=== PATIENT | female | born 1965 | race African-American/Black ===

== ENCOUNTER → 2016-10-19 | Outpatient (CLI) | payer OTHER ==
[~2016-10-19] VITALS: Ht 165.1 cm; Wt 107.5 kg
[~2016-10-19] MED LIST: /AUGM875TA; /CELE20CA; /CIPR75TA; /ONDA4TA; ACET65TA; AMOX875T; BARACLUDE; BIOT50004 PO; CALC500T49 PO; COLA100C2; DARV100T; ENTE1TAB PO; ESOM1CAP5 PO; FLAG500T; FOLI1TAB; LIDOCAINE 2% INJ 100 MG/5 ML SDV (FOR ANES.) As Ordered ONE; MULT1TAB10 PO; NS 1,000 ML IV ONE; PERC5TAB8; PROPOFOL 200 MG/20 ML VIAL As Ordered ONE; THERGRAN; VITA500T
--- NOTE | 2016-10-19 12:07 | ROOR ---
Patient Name: Aura Burton Procedure Date: 10/19/2016 11:53 AM Date of : 1965 Age: 51 Room: [facility] Gender: Female Note Status: Finalized Procedure: Upper GI endoscopy + Biopsies Indications: Iron deficiency anemia Providers: Garland Wright MD Referring MD: ROBBY BUSTAMANTE MD Requesting Provider: Medicines: Monitored Anesthesia Care Complications: No immediate complications. Procedure: Pre-Anesthesia Assessment: - The heart rate, respiratory rate, oxygen saturations, blood pressure, adequacy of pulmonary ventilation, and response to care were monitored throughout the procedure. The Endoscope was introduced through the mouth, and advanced to the second part of duodenum. The upper GI endoscopy was accomplished without difficulty. The patient tolerated the procedure well. Findings: The Z-line was regular and was found 35 cm from the incisors. A medium-sized hiatal hernia was present. Localized mild inflammation characterized by congestion (edema), erosions and erythema was found in the gastric antrum. Biopsies were taken with a cold forceps for Helicobacter pylori testing. The exam of the duodenum was otherwise normal. Biopsies for histology were taken with a cold forceps in the first portion of the duodenum for evaluation of celiac disease. The exam was otherwise without abnormality. Impression: - Z-line regular, 35 cm from the incisors. - Medium-sized hiatal hernia. - Chronic gastritis. Biopsied. - The examination was otherwise normal. - Biopsies were taken with a cold forceps for evaluation of celiac disease. - The examination was otherwise normal. Recommendation: - Patient has a contact number available for emergencies. The signs and symptoms of potential delayed complications were discussed with the patient. Return to normal activities tomorrow. Written discharge instructions were provided to the patient. - High fiber diet. - Discharge patient to home. - Continue present medications. - Await pathology results. - Telephone GI clinic for pathology results in 1 week. - Return to referring physician. - The findings and recommendations were discussed with the patient's family. Garland Wright MD Garland Wright MD 10/19/2016 12:06:48 PM This report has been signed electronically. Number of Addenda: 0 Note Initiated On: 10/19/2016 11:53 AM Estimated Blood Loss: Estimated blood loss: none.
--- NOTE | 2016-10-19 12:27 | ROOR ---
Patient Name: Aura Burton Procedure Date: 10/19/2016 11:54 AM Date of : 1965 Age: 51 Room: [facility] Gender: Female Note Status: Finalized Procedure: Colonoscopy to Anastomosis + Cold Snare Polypectomy + Hemoclips + Biopsies Indications: Iron deficiency anemia Providers: Garland Wright MD Referring MD: ROBBY BUSTAMANTE MD Requesting Provider: Medicines: Monitored Anesthesia Care Complications: No immediate complications. Procedure: Pre-Anesthesia Assessment: - The heart rate, respiratory rate, oxygen saturations, blood pressure, adequacy of pulmonary ventilation, and response to care were monitored throughout the procedure. The Colonoscope was introduced through the anus and advanced to the cecum, identified by appendiceal orifice and ileocecal valve. The colonoscopy was performed without difficulty. The patient tolerated the procedure well. The quality of the bowel preparation was good. Findings: The perianal and digital rectal examinations were normal. Non-bleeding internal hemorrhoids were found during retroflexion. The hemorrhoids were small and Grade I (internal hemorrhoids that do not prolapse). There was evidence of a prior end-to-end colo-colonic anastomosis at 20 cm proximal to the anus. This was patent and was characterized by healthy appearing mucosa. The anastomosis was traversed. A medium polyp was found at 20 cm proximal to the anus. The polyp was sessile. The polyp was removed with a cold snare. Resection and retrieval were complete. To prevent bleeding after the polypectomy, two hemostatic clips were successfully placed (MR conditional). There was no bleeding at the end of the procedure. Scattered small-mouthed diverticula were found in the sigmoid colon and descending colon. There was a small lipoma, at the anastomosis. Biopsies were obtained with cold forceps for histology at the anastomosis. There was evidence of a prior end-to-end ileo-colonic anastomosis at the hepatic flexure. This was patent and was characterized by healthy appearing mucosa. The exam was otherwise without abnormality. Impression: - Non-bleeding internal hemorrhoids. - Patent end-to-end colo-colonic anastomosis, characterized by healthy appearing mucosa. - One medium polyp at 20 cm proximal to the anus, removed with a cold snare. Resected and retrieved. Clips (MR conditional) were placed. - Diverticulosis in the sigmoid colon and in the descending colon. - Small lipoma at the colonic anastomosis. - Patent end-to-end ileo-colonic anastomosis, characterized by healthy appearing mucosa. - The examination was otherwise normal. - Biopsies were obtained at the anastomosis. - The examination was otherwise normal. Recommendation: - Discharge patient to home. - Continue present medications. - Await pathology results. - Telephone GI clinic for pathology results in 1 week. - Check Portal Online for Path Results.([email or web address]) - Return to referring physician. - The findings and recommendations were discussed with the patient's family. Garland Wright MD Garland Wright MD 10/19/2016 12:27:10 PM This report has been signed electronically. Number of Addenda: 0 Note Initiated On: 10/19/2016 11:54 AM Estimated Blood Loss: Estimated blood loss: none.
[2016-10-19 12:45] VITALS: BP 147/85
== END | disposition home or self-care (01) ==
LOC: M OPP 11:03
PROVIDERS: ATTEND Internal Medicine Gastroenterology
DX: D50.9 Iron deficiency anemia, unspecified (principal); D12.5 Benign neoplasm of sigmoid colon; K64.0 First degree hemorrhoids; Z98.0 Intestinal bypass and anastomosis status; K57.30 Diverticulosis of large intestine without perforation or abscess without bleeding; D17.5 Benign lipomatous neoplasm of intra-abdominal organs; K44.9 Diaphragmatic hernia without obstruction or gangrene; K29.50 Unspecified chronic gastritis without bleeding; R12 Heartburn; B18.1 Chronic viral hepatitis B without delta-agent; Z80.3 Family history of malignant neoplasm of breast; Z80.1 Family history of malignant neoplasm of trachea, bronchus and lung; Z87.891 Personal history of nicotine dependence; Z79.899 Other long term (current) drug therapy

== ENCOUNTER → 2017-01-07 | Outpatient (REF) ==
[~2017-01-07] MED LIST changes: -LIDOCAINE 2% INJ 100 MG/5 ML SDV (FOR ANES.) As Ordered ONE; -NS 1,000 ML IV ONE; -PROPOFOL 200 MG/20 ML VIAL As Ordered ONE
== END ==
LOC: M LAB 10:03
PROVIDERS: ATTEND Nurse Practitioner Adult Health
DX: Z02.1 Encounter for pre-employment examination (principal)

== ENCOUNTER → 2017-01-10 | Outpatient (REF) ==
--- NOTE | 2017-01-11 02:01 | REP ---
Clinical: Contract requirement . Comparison: None . Technique: PA and lateral. Findings: The mediastinum and cardiac silhouette are normal. The lung lozano are clear and without acute consolidation, effusion, or pneumothorax. The skeletal structures are intact and normal. Impression: 1. No acute cardiopulmonary process. Signed by Jaiden Mercer MD 01/11/2017 01:52 A
== END ==
LOC: M LAB 09:29
PROVIDERS: ATTEND Nurse Practitioner Adult Health
DX: Z02.1 Encounter for pre-employment examination (principal)

== ENCOUNTER → 2017-01-14 | Outpatient (CLI) | payer OTHER | LOC: M WHC 07:57 | PROVIDERS: ATTEND Family Medicine | DX: M79.605 Pain in left leg (principal) ==

== ENCOUNTER → 2017-01-25 | Outpatient (CLI) | payer OTHER ==
--- NOTE | 2017-01-25 13:41 | REP ---
TRIPLE PHASE BONE SCAN OF LOWER EXTREMITIES: Following the intravenous administration of 21.8 millicuries technetium 99m MDP, the patient's knees are imaged in the flow phase in the anterior and posterior projections. Immediate blood pool and 2-hour delayed images are performed of the lower extremities in the anterior, posterior, and both lateral projections, from just below the hips to just above the ankles. There is no abnormal blood flow. There is no significant abnormal blood pooling. The delayed images show arthritic uptake at the knees bilaterally. There is a small focus of increased uptake in the anterior tibial tubercle bilaterally in asymmetrical pattern, which is nonspecific. IMPRESSION: Arthritic uptake at the knees. Mild symmetrical increased uptake at the anterior tibial tubercle bilaterally is nonspecific and could represent stress related changes at tendinous insertion site. Signed by Anatoliy Fraga MD 01/25/2017 05:11 P
--- NOTE | 2017-01-25 14:05 | REP ---
WHOLE BODY BONE SCAN: Following the intravenous administration of 21.8 mCi technetium 99m MDP, patient's whole body is imaged in the anterior and posterior projections. Additional oblique images of the thoracic and pelvic regions are performed as well as lateral views of the calvarium and feet. There appears to be arthritic uptake at both knees. There is mild increased uptake in the anterior tibial tubercle bilaterally in a symmetrical pattern. This may be related to stress changes at tendinous insertion site. There is increased uptake in the posterior left calcaneus. I cannot exclude stress fracture or stress-related changes at the insertion of the Achilles tendon. No other abnormal uptake is seen in the axial or appendicular skeleton. Renal and bladder activity are seen IMPRESSION: There appears to be mild bilateral arthritic uptake at the knees. There is mild bilateral focus of increased uptake at the anterior tibial tubercles bilaterally, possibly representing stress-related changes at tendinous insertion site. There is increased uptake in the posterior aspect of the left calcaneus. This could be related to stress-related changes in the bone at the Achilles tendon insertion site. I cannot exclude a focal stress fracture at this location. Signed by Anatoliy Fraga MD 01/25/2017 05:11 P
== END ==
LOC: M RAD 08:09
PROVIDERS: ATTEND Specialist
DX: M17.0 Bilateral primary osteoarthritis of knee (principal)
CPT/HCPCS: 78306; 78315; A9503

== ENCOUNTER 2017-03-23 07:31 | Emergency (ER) | payer OTHER ==
[~2017-03-23] VITALS: Ht 165.1 cm; Wt 99.5 kg
[2017-03-23 09:25] VITALS: BP 147/89
--- NOTE | 2017-03-23 09:50 | REP ---
REASON: Pain and swelling. DEEP VENOUS ULTRASOUND RIGHT UPPER EXTREMITY: TECHNIQUE: Multiple ultrasonographic images of the deep venous structures of the right upper extremity were obtained to rule out deep venous thrombosis. FINDINGS: There is no abnormal echogenic material seen in any of the visualized deep venous structures of the right upper extremity. Coaptation where applicable is appropriate throughout. Augmentation shows an expected response throughout. IMPRESSION: Negative exam. Signed by Dylon Machuca DO 03/23/2017 10:22 A
== END 2017-03-23 09:27 | disposition home or self-care (01) ==
LOC: M ED 07:31
DX: M65.222 Calcific tendinitis, left upper arm (principal); G43.909 Migraine, unspecified, not intractable, without status migrainosus; B19.10 Unspecified viral hepatitis B without hepatic coma; Z79.899 Other long term (current) drug therapy

== ENCOUNTER 2018-10-29 17:58 | Emergency (ER) | payer OTHER ==
[~2018-10-29] VITALS: Ht 165.1 cm; Wt 108.2 kg
[~2018-10-29 17:58] MED LIST changes: -/CELE20CA; -/ONDA4TA; +CELE1CAP4; +ONDA-1
[2018-10-29] MEDS ORDERED: VITA500C24 PO (18:25)
[2018-10-29] MEDS ORDERED: IRON325T2 PO (18:25)
--- NOTE | 2018-10-29 19:45 | REP ---
Left wrist: Four views. History: Pain. Findings: Four views of the left wrist show soft tissue swelling dorsally over the carpus. On the lateral view there is a subtle cortical irregularity at the dorsal aspect of the triquetrum. A chip fracture of the triquetrum could have this appearance. No other fracture is seen. Impression: Suspect subtle chip fracture of the dorsal surface of the triquetrum. Otherwise negative. Electronically Signed by Liam Fischer MD 10/29/2018 07:36 P
[2018-10-29] MEDS ORDERED: IBUPROFEN 600 MG TAB PO ONE (20:00)
[2018-10-29] MEDS ORDERED: IBUP-1022 PO (20:09)
[2018-10-29 20:14] VITALS: BP 146/83
== END 2018-10-29 20:22 | disposition home or self-care (01) ==
LOC: M ED 17:58
DX: M65.9 Synovitis and tenosynovitis, unspecified (principal); Z79.899 Other long term (current) drug therapy

== ENCOUNTER 2018-12-12 02:51 | Emergency (ER) | payer OTHER ==
[~2018-12-12] VITALS: Ht 165.1 cm; Wt 105.0 kg
[~2018-12-12 02:51] MED LIST changes: +IBUP-1022 PO; +IRON325T2 PO; +VITA500C24 PO
[2018-12-12] MEDS ORDERED: NEXI20CA PO (02:58)
[2018-12-12 05:20] VITALS: BP 150/80
== END 2018-12-12 05:20 | disposition home or self-care (01) ==
LOC: M ED 02:51
DX: R07.0 Pain in throat (principal); T76.11XA Adult physical abuse, suspected, initial encounter; Y92.238 Other place in hospital as the place of occurrence of the external cause; Y99.0 Civilian activity done for income or pay; Z79.899 Other long term (current) drug therapy

== ENCOUNTER 2019-01-10 07:40 | Emergency (ER) | payer OTHER ==
[~2019-01-10] VITALS: Ht 165.1 cm; Wt 105.5 kg
[~2019-01-10 07:40] MED LIST changes: +NEXI20CA PO
[2019-01-10 09:15] LABS: BASO # 0.1 10^3/uL (0.0-0.2); BASO % 0.8 % (0.0-1.0); EOS # 0.1 10^3/uL (0.0-0.50); EOS % 1.1 % (0.0-3.0); HEMATOCRIT 35.5 % (36.0-47.0); HEMOGLOBIN 10.8 g/dl (12.0-15.5); LYMPH % 64.8 % (24.0-44.0); MEAN CORPUSCULAR HEMOGLOBIN 21.9 pg (27.0-33.0); MEAN CORPUSCULAR HGB CONC 30.4 g/dl (32.0-36.5); MEAN CORPUSCULAR VOLUME 71.9 fl (80.0-96.0); MONO # 0.5 10^3/uL (0.0-0.8); MONO % 8.6 % (0.0-5.0); NEUTROPHILS # 1.5 10^3/uL (1.8-7.7); NEUTROPHILS % 24.5 % (36.0-66.0); PLATELET COUNT, AUTOMATED 291 10^3/uL (150-450); RED BLOOD COUNT 4.94 10^6/uL (4.00-5.40); WHITE BLOOD COUNT 6.2 10^3/uL (4.0-10.0)
[2019-01-10 09:40] LABS: ERYTHROCYTE SEDIMENTATION RATE 13 mm/hr (0-30)
--- NOTE | 2019-01-10 09:51 | REP ---
Right elbow for views : There is no fracture or dislocation. Mineralization and joint spaces are normal. There are no calcifications or foreign bodies. There is an olecranon spur. Impression: Negative right elbow. There is an olecranon spur. Electronically Signed by Anatoliy Macedo MD 01/10/2019 09:42 A
[2019-01-10 10:15] LABS: ALBUMIN 3.4 GM/DL (3.2-5.2); ALT/SGPT 26 U/L (12-78); BILIRUBIN,TOTAL 0.4 MG/DL (0.2-1.0); BLOOD UREA NITROGEN 11 MG/DL (7-18); C REACTIVE PROTEIN QUANTITATIV 0.61 MG/DL (0.00-0.30); CALCIUM LEVEL 8.7 MG/DL (8.5-10.1); CARBON DIOXIDE LEVEL 29 MEQ/L (21-32); CHLORIDE LEVEL 108 MEQ/L (98-107); CHOLESTEROL LEVEL 131 MG/DL (< 200); CPK CREATINE PHOSPHOKINASE 211 U/L (26-192); CREATININE FOR GFR 0.98 MG/DL (0.55-1.30); GLOMERULAR FILTRATION RATE > 60.0 (>51); GLUCOSE, FASTING 84 MG/DL (70-100); LDH LACTATE DEHYDROGENASE 173 U/L (84-246); PHOSPHORUS LEVEL 2.5 MG/DL (2.5-4.9); POTASSIUM SERUM 3.1 MEQ/L (3.5-5.1); RHEUMATOID FACTOR QUANT < 10.0 IU/ML (<15.0); SODIUM LEVEL 142 MEQ/L (136-145); TOTAL PROTEIN 7.3 GM/DL (6.4-8.2); TRIGLYCERIDES LEVEL 130 MG/DL (<150)
[2019-01-10] MEDS ORDERED: POTA20TA6 PO (11:19)
[2019-01-10] MEDS ORDERED: NAPR-837 PO ×2 (11:19→11:36)
[2019-01-10 11:27] VITALS: BP 147/73
[2019-01-15 14:08] LABS: ANA (HEP2) Positive (.); ANTI DS-DNA AB <1:10 titer (.)
== END 2019-01-10 11:39 | disposition home or self-care (01) ==
LOC: M ED 07:40
DX: M25.521 Pain in right elbow (principal); E87.6 Hypokalemia; R74.8 Abnormal levels of other serum enzymes; D50.9 Iron deficiency anemia, unspecified; K21.9 Gastro-esophageal reflux disease without esophagitis; G43.909 Migraine, unspecified, not intractable, without status migrainosus; B19.10 Unspecified viral hepatitis B without hepatic coma; Z79.899 Other long term (current) drug therapy; Z88.0 Allergy status to penicillin; Z88.8 Allergy status to other drugs, medicaments and biological substances

== ENCOUNTER → 2019-08-25 | Outpatient (CLI) | payer OTHER ==
[~2019-08-25] MED LIST changes: +NAPR-837 PO; +POTA20TA6 PO
--- NOTE | 2019-08-26 08:58 | REP ---
Clinical: History of hepatitis B. Technique: Real time carrillo scale ultrasound examination using curved array transducer. Findings: Liver is relatively normal in contour, size, and echotexture. A 1.1 x 1.0 x 1.1 cm cyst in the medial left lobe is suggested. The pancreas is incompletely evaluated due to interposed bowel gas. The gallbladder is normal and without gallstones, wall thickening, or pericholecystic fluid. No biliary ductal dilatation is appreciated and the common bile duct measures 4.0 mm diameter. The right kidney is normal in reniform shape without hydronephrosis and measures 11.6 x 5.7 x 3.8 cm. No ascites in the visualized right upper quadrant. Impression: Suspected 1.1 cm hepatic cyst. Otherwise normal liver/right upper quadrant ultrasound. Electronically Signed by Jaiden Mercer MD 08/26/2019 08:49 A
== END ==
LOC: M RAD 08:12
PROVIDERS: ATTEND Internal Medicine Gastroenterology
DX: B16.9 Acute hepatitis B without delta-agent and without hepatic coma (principal); K76.89 Other specified diseases of liver

== ENCOUNTER 2021-06-19 06:21 | Emergency (ER) | payer OTHER ==
[~2021-06-19] VITALS: Ht 165.1 cm; Wt 98.2 kg
[~2021-06-19 06:21] MED LIST changes: -ENTE1TAB PO; +[UNRECOGNIZED DRUG - CODE] PO
[2021-06-19 07:03] LABS: BASO % 0.5 % (0.0-1.0); EOS # 0.1 10^3/uL (0.0-0.5); EOS % 1.5 % (0.0-3.0); HEMATOCRIT 38.1 % (36.0-47.0); HEMOGLOBIN 11.3 g/dl (12.0-15.5); LYMPH # 3.1 10^3/uL (1.5-5.0); LYMPH % 48.3 % (24.0-44.0); MEAN CORPUSCULAR HGB CONC 29.7 g/dl (32.0-36.5); MEAN CORPUSCULAR VOLUME 74.3 fl (80.0-96.0); MONO # 0.8 10^3/uL (0.0-0.8); MONO % 11.8 % (2.0-8.0); NEUTROPHILS # 2.4 10^3/uL (1.5-8.5); NEUTROPHILS % 37.7 % (36.0-66.0); PLATELET COUNT, AUTOMATED 284 10^3/uL (150-450); RED BLOOD COUNT 5.13 10^6/uL (4.00-5.40); WHITE BLOOD COUNT 6.5 10^3/uL (4.0-10.0)
[2021-06-19] MEDS ORDERED: MORPHINE 4 MG/ML 1ML VIAL/SYRINGE (J2270) IV ONE ×3 (07:15→11:15)
[2021-06-19] MEDS ORDERED: ONDANSETRON 4MG/2ML VIAL IV ONE (07:15)
[2021-06-19] MEDS ORDERED: ISOVUE-370 76% 100ML VIAL As Ordered ONE (07:30)
[2021-06-19 07:37] LABS: ALBUMIN 3.3 GM/DL (3.2-5.2); ALT/SGPT 20 U/L (12-78); BILIRUBIN,DIRECT < 0.1 MG/DL (0.0-0.2); BILIRUBIN,TOTAL 0.2 MG/DL (0.2-1.0); BLOOD UREA NITROGEN 11 MG/DL (7-18); CARBON DIOXIDE LEVEL 28 MEQ/L (21-32); CHLORIDE LEVEL 109 MEQ/L (98-107); CREATININE FOR GFR 0.97 MG/DL (0.55-1.30); GLOMERULAR FILTRATION RATE > 60.0 (>51); GLUCOSE, FASTING 99 MG/DL (70-100); LIPASE 95 U/L (73-393); POTASSIUM SERUM 3.9 MEQ/L (3.5-5.1); SODIUM LEVEL 143 MEQ/L (136-145); TOTAL PROTEIN 7.2 GM/DL (6.4-8.2)
--- NOTE | 2021-06-19 07:49 | REPVR ---
PROCEDURE INFORMATION: Exam: XR Chest Exam date and time: 06/19/2021 6:57 AM Age: 56 years old Clinical indication: Pain; Other: Unspecified; Additional info: Chest pain TECHNIQUE: Imaging protocol: XR of the chest. Views: 1 view. COMPARISON: CR Chest, 2 view PA, Lat 01/10/2017 10:05 AM FINDINGS: Lungs: Unremarkable. No consolidation. Pleural spaces: Unremarkable. No pleural effusion. No pneumothorax. Heart/Mediastinum: The cardiomediastinal silhouette is fairly stable in appearance, allowing for differences in technique. Bones/joints: Degenerative changes again involve the spine. IMPRESSION: No evidence for acute pulmonary disease. Electronically signed by: Herrera Herzog On 06/19/2021 07:49:35 AM
--- NOTE | 2021-06-19 08:03 | REPVR ---
PROCEDURE INFORMATION: Exam: CTA Chest With Contrast Exam date and time: 06/19/2021 7:45 AM Age: 56 years old Clinical indication: Pain; Other: Chest; Additional info: Chest pain TECHNIQUE: Imaging protocol: Computed tomographic angiography of the chest with contrast. 3D rendering (Not supervised by radiologist): MIP and/or 3D reconstructed images were created by the technologist. Radiation optimization: All CT scans at this facility use at least one of these dose optimization techniques: automated exposure control; mA and/or kV adjustment per patient size (includes targeted exams where dose is matched to clinical indication); or iterative reconstruction. Contrast material: ISOVUE 370; Contrast volume: 75 ml; Contrast route: INTRAVENOUS (IV); COMPARISON: CR PORTABLE CHEST X-RAY 06/19/2021 6:50 AM FINDINGS: Pulmonary arteries: No pulmonary embolus is identified. Aorta: The thoracic aorta is nonaneurysmal. Other arteries: Atherosclerotic vascular calcifications are noted. Thyroid: There is a 1.6 cm hypodense right thyroid nodule. Lungs: The lungs demonstrate mild patchy ground-glass opacities, which could reflect microatelectasis, edema or pneumonitis. There also mild linear areas of atelectasis and scarring in the left upper and lower lobes. No airspace consolidation. The central airways appear patent. Pleural spaces: Unremarkable. No pneumothorax. No pleural effusion. Heart: Unremarkable. No cardiomegaly. No pericardial effusion. Lymph nodes: Unremarkable. No enlarged lymph nodes. Liver: The partially included liver contains a small cyst. Bones/joints: Degenerative changes involve the spine and shoulders. Soft tissues: Unremarkable. IMPRESSION: 1. No pulmonary embolus identified. 2. Mild patchy ground-glass opacities about the lungs, could reflect microatelectasis, edema or pneumonitis. 3. 1.6 cm right thyroid nodule. Correlate with nonemergent ultrasound. COMMENTS: Consistent with the [employer]'s Incidental Findings Committee white paper (J Am Konrad Radiol 2015): In patients aged 35 years and older with an incidental thyroid nodule equal to or greater than 1.[address], MRI or extrathyroidal US, further evaluation with dedicated thyroid US is recommended for patients with normal life expectancy and without comorbidities. For smaller nodules without suspicious features, no further evaluation or follow up is recommended. Electronically signed by: Herrera Herzog On 06/19/2021 08:02:56 AM
[2021-06-19 08:33] LABS: RSV AMPLIFICATION NEGATIVE (NEGATIVE)
[2021-06-19] MEDS ORDERED: ASPIRIN 81 MG CHEW TABLET PO ONE (11:15)
[2021-06-19 13:15] VITALS: BP 121/72
--- NOTE | 2021-06-19 18:33 | ECGEPIP ---
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
--- NOTE | 2021-06-19 18:34 | ECGEPIP ---
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
--- NOTE | 2021-06-19 19:47 | ED PDOC ---
Post-Departure Follow-Up cta chest faxed to dr almaguer for Cortez Kern MD Jun 19, 2021 19:47
== END 2021-06-19 13:39 | disposition home or self-care (01) ==
LOC: M ED 06:21
DX: J18.9 Pneumonia, unspecified organism (principal); E04.1 Nontoxic single thyroid nodule; R00.1 Bradycardia, unspecified; K21.9 Gastro-esophageal reflux disease without esophagitis; Z88.0 Allergy status to penicillin; Z88.6 Allergy status to analgesic agent; Z88.8 Allergy status to other drugs, medicaments and biological substances; Z79.899 Other long term (current) drug therapy; F17.200 Nicotine dependence, unspecified, uncomplicated
CPT/HCPCS: 71045; 71275; 80047; 80048; 80076; 83690; 84439; 84443; 84484; 85025; 87631; 93005; 93041; 94760; 96374; 96375; 96376; 99285; J2270; J2405; Q9967

== ENCOUNTER → 2022-04-20 | Outpatient (CLI) | payer OTHER ==
[~2022-04-20] MED LIST changes: +POTA-151 PO; -POTA20TA6 PO
== END ==
LOC: M PLARAD 10:02
PROVIDERS: ATTEND Family Medicine
DX: M25.562 Pain in left knee (principal)

== ENCOUNTER 2022-05-21 10:41 | Emergency (ER) | payer OTHER ==
[~2022-05-21] VITALS: Ht 165.1 cm; Wt 95.5 kg
[2022-05-21] MEDS ORDERED: ONDANSETRON 4MG 2ML VIAL IV ONE (11:25)
[2022-05-21 11:58] LABS: BASO % 0.5 % (0.0-1.0); EOS % 0.6 % (0.0-3.0); HEMATOCRIT 36.8 % (36.0-47.0); HEMOGLOBIN 11.1 g/dl (12.0-15.5); MEAN CORPUSCULAR HEMOGLOBIN 22.1 pg (27.0-33.0); MEAN CORPUSCULAR HGB CONC 30.2 g/dl (32.0-36.5); MEAN CORPUSCULAR VOLUME 73.2 fl (80.0-96.0); MONO # 0.6 10^3/uL (0.0-0.8); MONO % 9.2 % (2.0-8.0); NEUTROPHILS % 29.5 % (36.0-66.0); PLATELET COUNT, AUTOMATED 288 10^3/uL (150-450); RED BLOOD COUNT 5.03 10^6/uL (4.00-5.40); WHITE BLOOD COUNT 6.6 10^3/uL (4.0-10.0)
[2022-05-21 12:09] LABS: INR 0.96
[2022-05-21 12:10] LABS: PARTIAL THROMBOPLASTIN TIME 29.2 SECONDS (24.8-34.2)
[2022-05-21 12:19] LABS: LIPASE 27 U/L (12-53)
[2022-05-21 12:20] LABS: CK-MB VALUE MASS < 1.0 NG/ML (<3.6)
[2022-05-21 12:22] LABS: BILIRUBIN,DIRECT 0.1 MG/DL (<0.4)
[2022-05-21 12:23] LABS: FREE T4 1.04 NG/DL (0.89-1.76)
[2022-05-21 12:24] LABS: ALBUMIN 3.7 G/DL (3.2-5.2); ALKALINE PHOSPHATASE 57 U/L (46-116); ALT/SGPT 16 U/L (7.0-40); AST/SGOT 20 U/L (<34); BILIRUBIN,TOTAL 0.3 MG/DL (0.3-1.2); BLOOD UREA NITROGEN 11 MG/DL (9-23); CALCIUM LEVEL 9.4 MG/DL (8.5-10.1); CARBON DIOXIDE LEVEL 29 MMOL/L (20-31); CHLORIDE LEVEL 106 MMOL/L (98-107); CPK CREATINE PHOSPHOKINASE 182 U/L (34-145); CREATININE FOR GFR 0.88 MG/DL (0.55-1.30); GLOMERULAR FILTRATION RATE > 60.0 (>51); GLUCOSE, FASTING 95 MG/DL (60-100); MB/CK RELATIVE INDEX 0.54 (< OR =4); POTASSIUM SERUM 3.2 MMOL/L (3.5-5.1); SODIUM LEVEL 144 MMOL/L (136-145); TOTAL PROTEIN 7.3 G/DL (5.7-8.2)
[2022-05-21] MEDS: MORPHINE 2 MG/ML 1ML VIAL IV PRN ×2 (12:28→13:31)
[2022-05-21] MEDS ORDERED: ISOVUE-370 76% 100ML VIAL As Ordered ONE (12:35)
[2022-05-21 13:35] LABS: HCG, SERUM QUALITATIVE NEGATIVE (NEGATIVE)
[2022-05-21 14:03] LABS: RSV AMPLIFICATION NEGATIVE (NEGATIVE)
[2022-05-21 14:08] LABS: CK-MB VALUE MASS < 1.0 NG/ML (<3.6)
[2022-05-21 15:01] LABS: CPK CREATINE PHOSPHOKINASE 157 U/L (34-145); MB/CK RELATIVE INDEX 0.63 (< OR =4)
[2022-05-21 15:18] LABS: CK-MB VALUE MASS < 1.0 NG/ML (<3.6)
[2022-05-21 15:20] LABS: CPK CREATINE PHOSPHOKINASE 164 U/L (34-145)
[2022-05-21 15:52] VITALS: BP 107/58
== END 2022-05-21 16:00 | disposition home or self-care (01) ==
LOC: M ED 10:41
DX: R07.9 Chest pain, unspecified (principal); I44.4 Left anterior fascicular block; R00.1 Bradycardia, unspecified; G43.909 Migraine, unspecified, not intractable, without status migrainosus; F17.200 Nicotine dependence, unspecified, uncomplicated; Z88.1 Allergy status to other antibiotic agents; Z88.8 Allergy status to other drugs, medicaments and biological substances; Z79.899 Other long term (current) drug therapy
CPT/HCPCS: 71045; 71275; 80048; 80076; 82550; 82553; 83690; 84439; 84443; 84484; 84703; 85025; 85610; 85730; 87631; 93005; 93041; 94760; 96374; 96375; 96376; 99285; J2270; J2405

== ENCOUNTER → 2022-12-10 | Outpatient (CLI) | payer OTHER ==
[2022-12-10 15:30] LABS: BASO % 0.5 % (0.0-1.0); EOS % 0.4 % (0.0-3.0); HEMATOCRIT 38.2 % (36.0-47.0); HEMOGLOBIN 11.4 g/dl (12.0-15.5); LYMPH % 66.6 % (24.0-44.0); MEAN CORPUSCULAR HEMOGLOBIN 21.8 pg (27.0-33.0); MEAN CORPUSCULAR HGB CONC 29.8 g/dl (32.0-36.5); MEAN CORPUSCULAR VOLUME 73.2 fl (80.0-96.0); MONO # 0.7 10^3/uL (0.0-0.8); MONO % 9.6 % (2.0-8.0); NEUTROPHILS # 1.7 10^3/uL (1.5-8.5); NEUTROPHILS % 22.9 % (36.0-66.0); PLATELET COUNT, AUTOMATED 301 10^3/uL (150-450); RED BLOOD COUNT 5.22 10^6/uL (4.00-5.40); WHITE BLOOD COUNT 7.6 10^3/uL (4.0-10.0)
[2022-12-10 15:42] LABS: ERYTHROCYTE SEDIMENTATION RATE 35 mm/hr (0-30)
[2022-12-10 15:54] LABS: URIC ACID 7.4 MG/DL (3.1-7.8)
[2022-12-10 15:59] LABS: RHEUMATOID FACTOR QUANT < 3.5 IU/ML (<14)
== END ==
LOC: M PLALAB 12:11
PROVIDERS: ATTEND Physician Assistant Surgical
DX: M71.22 Synovial cyst of popliteal space [Baker], left knee (principal); M25.462 Effusion, left knee

== ENCOUNTER → 2023-03-05 | Outpatient (CLI) | payer OTHER | LOC: M WHC 15:07 | PROVIDERS: ATTEND Family Medicine | DX: Z12.31 Encounter for screening mammogram for malignant neoplasm of breast (principal) ==

== ENCOUNTER → 2023-05-20 | Outpatient (CLI) | payer OTHER ==
[~2023-05-20] MED LIST changes: -BIOT50004 PO; +BIOT5CAP8 PO
== END ==
LOC: M RAD 08:43
PROVIDERS: ATTEND Internal Medicine Gastroenterology
DX: B18.1 Chronic viral hepatitis B without delta-agent (principal); K76.89 Other specified diseases of liver